=== PATIENT | female | born 1960 | race Caucasian/White ===

== ENCOUNTER 2019-11-04 02:42 | Emergency (ER) | payer MEDICAID, OTHER ==
[~2019-11-04] VITALS: Ht 162.6 cm; Wt 80.3 kg
[~2019-11-04 02:42] MED LIST: ALBU8HFA4
[2019-11-04] MEDS ORDERED: [UNRECOGNIZED DRUG - CODE] PO (02:50)
[2019-11-04] MEDS ORDERED: PANTOPRAZOLE SODIUM 40 MG TABLET.DR PO ONE ×2 (03:08→03:15)
[2019-11-04] MEDS ORDERED: LIDOCAINE VISCUS 2% 15 ML UDC ONE (03:08)
[2019-11-04] MEDS ORDERED: MAG HYDROX/AL HYDROX/SIMETH 30 ML LIQUID UDC ONE (03:08)
[2019-11-04] MEDS ORDERED: DICYCLOMINE HCL LIQ 10 MG/5 ML UDC ONE (03:09)
[2019-11-04] MEDS ORDERED: LIDOCAINE VISCUS 2% 15 ML UDC MM ONE (03:15)
[2019-11-04] MEDS ORDERED: MAG HYDROX/AL HYDROX/SIMETH 30 ML LIQUID UDC PO ONE (03:15)
[2019-11-04] MEDS ORDERED: DICYCLOMINE HCL LIQ 10 MG/5 ML UDC PO ONE (03:15)
--- NOTE | 2019-11-04 03:54 | NUR ---
Patient discharged to home in stable conditon. Written and verbal after care instructions given. Patient verbalizes understanding of instructions. Pt states she feels better. Walked out of ER in stable gait with spouse. No acute distress noted. VSS.
[2019-11-04 03:55] VITALS: BP 147/74
== END 2019-11-04 03:55 | disposition home or self-care (01) ==
LOC: ER 02:50
DX: R10.13 Epigastric pain (principal); J45.909 Unspecified asthma, uncomplicated; K21.9 Gastro-esophageal reflux disease without esophagitis; Z90.49 Acquired absence of other specified parts of digestive tract; Z79.899 Other long term (current) drug therapy
CPT/HCPCS: 93005; A4663; J7030

== ENCOUNTER → 2023-01-23 | Emergency (ER) | payer OTHER ==
[~2023-01-23] VITALS: Ht 157.5 cm; Wt 74.4 kg
[~2023-01-23] MED LIST changes: +ACETAMINOPHEN 325 MG TABLET ONE; +ACETAMINOPHEN 325 MG TABLET PO ONE; +IBUPROFEN 400 MG TABLET ONE; +IBUPROFEN 400 MG TABLET PO ONE; +MECLIZINE HCL 25 MG TABLET ONE; +MECLIZINE HCL 25 MG TABLET PO ONE; +METOCLOPRAMIDE HCL 10 MG TABLET ONE; +METOCLOPRAMIDE HCL 10 MG TABLET PO ONE; +MISCELLANEOUS MED XX ONE; +TDAP DIPH,PERTUSS,TET VAC/PF 0.5 ML DISP.SYRIN IM ONE; +[UNRECOGNIZED DRUG - CODE] PO
--- NOTE | 2023-01-23 15:59 | NUR ---
at bedside for evaluation.
--- NOTE | 2023-01-23 16:36 | NUR ---
Patient taken for CT scan.
--- NOTE | 2023-01-23 16:46 | NUR ---
Patient back from CT.
--- NOTE | 2023-01-23 18:02 | NUR ---
Patient able to ambulate to restroom with brisk, steady gait. No complaints of dizziness at this time.
== END | disposition home or self-care (01) ==
LOC: ER 15:50
DX: S06.0X0A Concussion without loss of consciousness, initial encounter (principal); S01.01XA Laceration without foreign body of scalp, initial encounter; R40.2362 Coma scale, best motor response, obeys commands, at arrival to emergency department; R40.2142 Coma scale, eyes open, spontaneous, at arrival to emergency department; R40.2252 Coma scale, best verbal response, oriented, at arrival to emergency department; W22.8XXA Striking against or struck by other objects, initial encounter; Y92.89 Other specified places as the place of occurrence of the external cause; R51.9 Headache, unspecified; J45.909 Unspecified asthma, uncomplicated; K21.9 Gastro-esophageal reflux disease without esophagitis; Z90.49 Acquired absence of other specified parts of digestive tract
CPT/HCPCS: 70450; 90715; A4663; J8597

== ENCOUNTER 2024-02-17 18:09 | Emergency (ER) | payer OTHER ==
[~2024-02-17] VITALS: Ht 152.4 cm; Wt 77.1 kg
[~2024-02-17 18:09] MED LIST changes: -ACETAMINOPHEN 325 MG TABLET ONE; -ACETAMINOPHEN 325 MG TABLET PO ONE; -IBUPROFEN 400 MG TABLET ONE; -IBUPROFEN 400 MG TABLET PO ONE; -MECLIZINE HCL 25 MG TABLET ONE; -MECLIZINE HCL 25 MG TABLET PO ONE; -METOCLOPRAMIDE HCL 10 MG TABLET ONE; -METOCLOPRAMIDE HCL 10 MG TABLET PO ONE; -MISCELLANEOUS MED XX ONE; -TDAP DIPH,PERTUSS,TET VAC/PF 0.5 ML DISP.SYRIN IM ONE
[2024-02-17 18:40] LABS: RED BLOOD CELL COUNT(AUTO) 4.58 MIL/uL (3.63-4.92)
[2024-02-17 18:53] LABS: BASOPHILS # (AUTO) 0.1 K/UL (0.0-0.2); BASOPHILS % (AUTO) 0.9 % (0.0-2.0); DIFFERENTIAL COMMENT 1; EOSINOPHILS # (AUTO) 0.2 K/uL (0.0-0.7); EOSINOPHILS % (AUTO) 3.7 % (0.0-7.0); HEMATOCRIT 39.9 % (31.2-41.9); HEMOGLOBIN 13.4 g/dL (10.9-14.3); LYMPHOCYTES # (AUTO) 1.8 K/uL (0.8-4.8); LYMPHOCYTES % (AUTO) 28.6 % (20.5-51.5); MEAN CORPUSCULAR HEMOGLOBIN 29.3 uug (24.7-32.8); MEAN CORPUSCULAR HGB CONC 34 g/dL (32.3-35.6); MEAN CORPUSCULAR VOLUME 87.2 fL (75.5-95.3); MONOCYTES # (AUTO) 0.5 K/uL (0.1-1.30); MONOCYTES % (AUTO) 7.6 % (0.0-11.0); NEUTROPHILS # (AUTO) 3.7 K/uL (1.8-8.9); NEUTROPHILS % (AUTO) 59.2 % (38.5-71.5); PLATELET COUNT (AUTO) 250 K/uL (179-408); RED CELL DISTRIBUTION WIDTH 13.6 % (12.3-17.7); WHITE BLOOD COUNT (AUTO) 6.2 K/uL (3.8-11.8)
[2024-02-17 18:56] LABS: CALCIUM 9.3 mg/dL (8.5-10.1); CARBON DIOXIDE 26 mmol/L (21-32); CHLORIDE 104 mmol/L (98-107); CREATININE 0.8 mg/dL (0.6-1.3); GLUCOSE 185 mg/dL (74-106); POTASSIUM 3.9 mmol/L (3.5-5.1); SODIUM SERUM 140 mmol/L (136-145); UREA NITROGEN, BLOOD 15 mg/dL (7-18)
[2024-02-17 19:01] LABS: ALBUMIN 3.6 g/dL (3.4-5.0); BILIRUBIN,DIRECT 0.1 mg/dL (0.0-0.2); BILIRUBIN,TOTAL 0.3 mg/dL (0.2-1.0); TOTAL PROTEIN, SERUM 7.4 g/dL (6.4-8.2)
[2024-02-17] MEDS ORDERED: ASPIRIN 81 MG TAB.CHEW ONE (21:15)
[2024-02-17] MEDS: ASPIRIN 81 MG TAB.CHEW PO ONE (21:28)
[2024-02-17 23:02] VITALS: BP 160/75; TEMP 98.5; O2SAT 99
== END 2024-02-17 23:03 | disposition home or self-care (01) ==
LOC: ER 18:11
DX: R07.89 Other chest pain (principal); J45.909 Unspecified asthma, uncomplicated; K21.9 Gastro-esophageal reflux disease without esophagitis; Z98.890 Other specified postprocedural states; Z79.899 Other long term (current) drug therapy
CPT/HCPCS: 36415; 71045; 84484; 85025; 93005; A4606; A4663